=== PATIENT | male | born 1980 ===

== ENCOUNTER 2016-11-24 05:00 | Emergency (ER) | payer OTHER ==
[2016-11-24] MEDS ORDERED: PREDNISONE 20 MG TABLET ONE (05:45)
[2016-11-24] MEDS ORDERED: CYCLOBENZAPRINE HCL 10 MG TABLET ONE (05:45)
[2016-11-24] MEDS ORDERED: HYDROCODONE/ACETAMINOPHEN 5/325MG TABLET ONE (05:46)
[2016-11-24] MEDS ORDERED: IBUPROFEN 800 MG TABLET ONE (05:46)
== END 2016-11-24 07:24 | disposition home or self-care (01) ==
LOC: ED 05:00
DX: M62.830 Muscle spasm of back (principal); M54.5 Low back pain
CPT/HCPCS: 99283 ×2; A9270 ×2; J7512